=== PATIENT | male | born 1940 | race African-American/Black ===

== ENCOUNTER 2021-04-28 18:23 | Inpatient (IN) | payer OTHER ==
[~2021-04-28] VITALS: Ht 182.9 cm; Wt 86.4 kg
[2021-04-28] MEDS ORDERED: ACETAMINOPHEN 650MG SUPP PR STA (18:38)
[2021-04-28] MEDS ORDERED: CEFTRIAXONE 1 G PREMIX 50 ML IV ONE (18:45)
[2021-04-28] MEDS ORDERED: AZITHROMYCIN 500MG/250ML 250 ML IV ONE (18:45)
[2021-04-28] MEDS ORDERED: SODIUM CHLORIDE 0.9% 1,000 ML IV ONE (18:45)
[2021-04-28 19:13] LABS: BASOPHILS % 0.3 % (0.0-2.0); EOSINOPHILS % 0.4 % (0.0-5.0); HEMATOCRIT. 36.6 % (42.0-52.0); HEMOGLOBIN. 11.9 g/dL (14.0-18.0); LYMPHOCYTES % 8.7 % (20.0-50.0); MEAN CORPUSCULAR HEMOGLOBIN 30.7 pg (28.0-32.0); MEAN CORPUSCULAR VOLUME 94.4 fL (80.0-94.0); MONOCYTES % 5.2 % (2.0-8.0); NEUTROPHILS % 85.4 % (40.0-76.0); PLATELET 294 x1000/uL (130-400); RED BLOOD CELL COUNT 3.88 mill/uL (4.7-6.1); RED CELL DISTRIBUTION WIDTH 15.7 % (11.6-14.6)
[2021-04-28 19:20] LABS: CHLORIDE 109 mEq/L (98-107)
[2021-04-28 20:40] LABS: CLARITY URINE CLEAR (CLEAR); COLOR URINE YELLOW (YELLOW); KETONES URINE NEGATIVE (NEGATIVE); LEUKOCYTE ESTERASE URINE NEGATIVE (NEGATIVE); NITRITE URINE NEGATIVE (NEGATIVE); OCCULT BLOOD URINE 2+ (NEGATIVE); PH URINE 5.5 (4.5-8.0); PROTEIN URINE NEGATIVE (NEGATIVE); SPECIFIC GRAVITY URINE 1.014 (1.005-1.030)
[2021-04-29 03:40] VITALS: BP 143/82
[2021-04-29 04:00] VITALS: BP 134/82
[2021-04-29] MEDS ORDERED: PSYL575P22 MT (04:44)
[2021-04-29] MEDS ORDERED: SILD20TA PO (04:45)
[2021-04-29] MEDS ORDERED: FAMO40TA7 PO (04:46)
[2021-04-29] MEDS ORDERED: TERA1CAP53 MT (04:46)
[2021-04-29] MEDS ORDERED: FINA1TAB18 PO (04:47)
[2021-04-29] MEDS ORDERED: ATOR10TA69 PO (04:47)
[2021-04-29] MEDS ORDERED: XALAO EACHEYE (04:48)
[2021-04-29] MEDS ORDERED: TIMO5DRO32 EACHEYE (04:51)
[2021-04-29] MEDS ORDERED: BICA50TA7 PO (04:52)
[2021-04-29] MEDS ORDERED: BRIM5DRO6 EACHEYE (04:52)
[2021-04-29] MEDS ORDERED: ACETAMINOPHEN 325MG TABLET PO PRN (06:00)
[2021-04-29 08:00] VITALS: BP 142/83
[2021-04-29] MEDS: ASPIRIN 81MG TABLET PO SCH (09:36)
[2021-04-29] MEDS: BICALUTAMIDE 50 MG TABLET PO SCH (09:37)
[2021-04-29] MEDS: PSYLLIUM SEED PACKET PO SCH (09:37)
[2021-04-29] MEDS: FAMOTIDINE 20MG TABLET PO SCH ×2 (09:37→20:53)
[2021-04-29 12:00] VITALS: BP 146/81
[2021-04-29] MEDS ORDERED: IPRATROPIUM/ALBUTEROL 0.5-3(2.5)MG/3ML NEB HHN PRN (14:45)
[2021-04-29] MEDS ORDERED: ONDANSETRON HCL 4MG/2ML INJ IV PRN (14:45)
[2021-04-29 16:00] VITALS: BP 133/74
[2021-04-29] MEDS ORDERED: FUROSEMIDE 40MG/4ML VIAL IVP NR (16:00)
[2021-04-29] MEDS: AZITHROMYCIN 500 MG in DEXT 5% WATER 250 ML IV SCH (18:21)
[2021-04-29] MEDS: CEFTRIAXONE 1,000 MG in DEXTROSE 5% WATER 50 ML IV SCH (18:22)
[2021-04-29 20:00] VITALS: BP 103/58
[2021-04-29] MEDS: TERAZOSIN HCL 1MG CAPSULE PO SCH (20:55)
[2021-04-29] MEDS: ATORVASTATIN CALCIUM 20MG TABLET PO SCH (21:06)
[2021-04-30] VITALS: BP 135/69
[2021-04-30 04:00] VITALS: BP 116/73
[2021-04-30 07:36] LABS: BASOPHILS % 0.6 % (0.0-2.0); HEMATOCRIT. 33.9 % (42.0-52.0); HEMOGLOBIN. 11.1 g/dL (14.0-18.0); LYMPHOCYTES % 14.2 % (20.0-50.0); MEAN CORPUSCULAR HEMOGLOBIN 30.8 pg (28.0-32.0); MEAN CORPUSCULAR VOLUME 93.7 fL (80.0-94.0); MEAN PLATELET VOLUME 7.5 fl (7.4-10.4); MONOCYTES % 10.7 % (2.0-8.0); NEUTROPHILS % 71.5 % (40.0-76.0); PLATELET 220 x1000/uL (130-400); RED BLOOD CELL COUNT 3.62 mill/uL (4.7-6.1); RED CELL DISTRIBUTION WIDTH 15.7 % (11.6-14.6)
[2021-04-30 07:54] LABS: CHLORIDE 109 mEq/L (98-107)
[2021-04-30 08:00] VITALS: BP 145/88
[2021-04-30] MEDS: PSYLLIUM SEED PACKET PO SCH (08:38)
[2021-04-30] MEDS: FAMOTIDINE 20MG TABLET PO SCH ×2 (08:38→21:38)
[2021-04-30] MEDS: ASPIRIN 81MG TABLET PO SCH (08:38)
[2021-04-30 12:00] VITALS: BP 122/65
[2021-04-30 16:00] VITALS: BP 120/67
[2021-04-30] MEDS: CEFTRIAXONE 1,000 MG in DEXTROSE 5% WATER 50 ML IV SCH (17:10)
[2021-04-30] MEDS: TIMOLOL MALEATE 0.5% OPHTH DROPS 5ML EACHEYE SCH (17:10)
[2021-04-30] MEDS: AZITHROMYCIN 500 MG in DEXT 5% WATER 250 ML IV SCH (17:10)
[2021-04-30] MEDS: ATORVASTATIN CALCIUM 20MG TABLET PO SCH (21:38)
[2021-04-30] MEDS: TERAZOSIN HCL 1MG CAPSULE PO SCH (21:38)
[2021-04-30] MEDS: BRIMONIDINE 0.2% OPHTH DROPS 5ML EACHEYE SCH (21:39)
[2021-04-30] MEDS: LATANOPROST 0.005% OPHTH DROPS 2.5ML EACHEYE SCH (21:39)
[2021-05-01] VITALS: BP 112/71
[2021-05-01 04:00] VITALS: BP 131/77
[2021-05-01] MEDS: BRIMONIDINE 0.2% OPHTH DROPS 5ML EACHEYE SCH ×3 (06:08→21:24)
[2021-05-01 08:00] VITALS: BP 126/68
[2021-05-01] MEDS: BICALUTAMIDE 50 MG TABLET PO SCH (09:02)
[2021-05-01] MEDS: TIMOLOL MALEATE 0.5% OPHTH DROPS 5ML EACHEYE SCH (09:02)
[2021-05-01] MEDS: FAMOTIDINE 20MG TABLET PO SCH ×2 (09:02→21:17)
[2021-05-01] MEDS: ASPIRIN 81MG TABLET PO SCH (09:02)
[2021-05-01] MEDS: PSYLLIUM SEED PACKET PO SCH (09:02)
[2021-05-01 12:00] VITALS: BP 141/83
[2021-05-01 16:00] VITALS: BP 106/52
[2021-05-01] MEDS: CEFTRIAXONE 1,000 MG in DEXTROSE 5% WATER 50 ML IV SCH (18:37)
[2021-05-01] MEDS: AZITHROMYCIN 500 MG in DEXT 5% WATER 250 ML IV SCH (18:37)
[2021-05-01 20:00] VITALS: BP 122/73
[2021-05-01] MEDS: ATORVASTATIN CALCIUM 20MG TABLET PO SCH (21:17)
[2021-05-01] MEDS: TERAZOSIN HCL 1MG CAPSULE PO SCH (21:24)
[2021-05-02] VITALS: BP 126/80
[2021-05-02 04:00] VITALS: BP 138/72
[2021-05-02] MEDS: BRIMONIDINE 0.2% OPHTH DROPS 5ML EACHEYE SCH ×3 (06:19→21:30)
[2021-05-02 08:00] VITALS: BP 122/68
[2021-05-02] MEDS: PSYLLIUM SEED PACKET PO SCH (09:00)
[2021-05-02 10:08] LABS: BASOPHILS % 0.5 % (0.0-2.0); EOSINOPHILS % 2.5 % (0.0-5.0); HEMATOCRIT. 31.6 % (42.0-52.0); HEMOGLOBIN. 10.3 g/dL (14.0-18.0); LYMPHOCYTES % 20.6 % (20.0-50.0); MEAN CORPUSCULAR HEMOGLOBIN 30.6 pg (28.0-32.0); MEAN CORPUSCULAR VOLUME 93.8 fL (80.0-94.0); MEAN PLATELET VOLUME 8.2 fl (7.4-10.4); MONOCYTES % 6.4 % (2.0-8.0); PLATELET 237 x1000/uL (130-400); RED BLOOD CELL COUNT 3.37 mill/uL (4.7-6.1); RED CELL DISTRIBUTION WIDTH 15.1 % (11.6-14.6)
[2021-05-02 10:30] LABS: CHLORIDE 108 mEq/L (98-107)
[2021-05-02] MEDS: FAMOTIDINE 20MG TABLET PO SCH ×2 (10:49→21:30)
[2021-05-02] MEDS: ASPIRIN 81MG TABLET PO SCH (10:49)
[2021-05-02] MEDS: FUROSEMIDE 40MG/4ML VIAL IVP SCH (10:50)
[2021-05-02] MEDS: TIMOLOL MALEATE 0.5% OPHTH DROPS 5ML EACHEYE SCH (10:50)
[2021-05-02 12:00] VITALS: BP 127/67
[2021-05-02] MEDS ORDERED: LIDOCAINE HCL 1% 10 MG/ML 10ML VIAL ONE (14:33)
[2021-05-02 16:00] VITALS: BP 124/71
[2021-05-02] MEDS: CEFTRIAXONE 1,000 MG in DEXTROSE 5% WATER 50 ML IV SCH (17:28)
[2021-05-02] MEDS: AZITHROMYCIN 500 MG in DEXT 5% WATER 250 ML IV SCH (18:51)
[2021-05-02 20:00] VITALS: BP 136/68
[2021-05-02] MEDS: TERAZOSIN HCL 1MG CAPSULE PO SCH (21:29)
[2021-05-02] MEDS: LATANOPROST 0.005% OPHTH DROPS 2.5ML EACHEYE SCH (21:29)
[2021-05-02] MEDS: ATORVASTATIN CALCIUM 20MG TABLET PO SCH (21:30)
[2021-05-03] VITALS: BP 130/69
[2021-05-03 04:00] VITALS: BP 142/64
[2021-05-03] MEDS: BRIMONIDINE 0.2% OPHTH DROPS 5ML EACHEYE SCH ×3 (05:10→22:58)
[2021-05-03 08:00] VITALS: BP 150/63
[2021-05-03] MEDS: FUROSEMIDE 40MG/4ML VIAL IVP SCH (09:32)
[2021-05-03] MEDS: ASPIRIN 81MG TABLET PO SCH (09:32)
[2021-05-03] MEDS: FAMOTIDINE 20MG TABLET PO SCH ×2 (09:32→22:58)
[2021-05-03] MEDS: PSYLLIUM SEED PACKET PO SCH (09:32)
[2021-05-03] MEDS: BICALUTAMIDE 50 MG TABLET PO SCH (09:33)
[2021-05-03] MEDS: TIMOLOL MALEATE 0.5% OPHTH DROPS 5ML EACHEYE SCH (09:33)
[2021-05-03 12:00] VITALS: BP 140/68
[2021-05-03 16:00] VITALS: BP 109/68
[2021-05-03 16:31] LABS: BASOPHILS % 0.4 % (0.0-2.0); EOSINOPHILS % 2.7 % (0.0-5.0); HEMOGLOBIN. 8.1 g/dL (14.0-18.0); MEAN CORPUSCULAR HEMOGLOBIN 30.2 pg (28.0-32.0); MEAN CORPUSCULAR VOLUME 93.3 fL (80.0-94.0); MEAN PLATELET VOLUME 8.4 fl (7.4-10.4); MONOCYTES % 8.8 % (2.0-8.0); NEUTROPHILS % 73.1 % (40.0-76.0); PLATELET 181 x1000/uL (130-400); RED BLOOD CELL COUNT 2.68 mill/uL (4.7-6.1)
[2021-05-03] MEDS: CEFTRIAXONE 1,000 MG in DEXTROSE 5% WATER 50 ML IV SCH (17:26)
[2021-05-03 20:00] VITALS: BP 120/66
[2021-05-03] MEDS: ATORVASTATIN CALCIUM 20MG TABLET PO SCH (22:58)
[2021-05-03] MEDS: TERAZOSIN HCL 1MG CAPSULE PO SCH (22:58)
[2021-05-04] VITALS (7 sets, daily range): BP systolic 112–165; BP diastolic 49–68
[2021-05-04] MEDS: BRIMONIDINE 0.2% OPHTH DROPS 5ML EACHEYE SCH ×3 (05:43→21:37)
[2021-05-04] MEDS: TIMOLOL MALEATE 0.5% OPHTH DROPS 5ML EACHEYE SCH (09:39)
[2021-05-04] MEDS: FAMOTIDINE 20MG TABLET PO SCH ×2 (09:39→20:50)
[2021-05-04] MEDS: ASPIRIN 81MG TABLET PO SCH (09:39)
[2021-05-04] MEDS: PSYLLIUM SEED PACKET PO SCH (09:39)
[2021-05-04] MEDS: FUROSEMIDE 40MG/4ML VIAL IVP SCH (09:54)
[2021-05-04] MEDS: CEFTRIAXONE 1,000 MG in DEXTROSE 5% WATER 50 ML IV SCH (17:18)
[2021-05-04] MEDS: ATORVASTATIN CALCIUM 20MG TABLET PO SCH (20:56)
[2021-05-04] MEDS: TERAZOSIN HCL 1MG CAPSULE PO SCH (20:56)
[2021-05-04] MEDS: LATANOPROST 0.005% OPHTH DROPS 2.5ML EACHEYE SCH (21:03)
[2021-05-05] VITALS: BP 133/67
[2021-05-05 04:00] VITALS: BP 144/72
[2021-05-05] MEDS: BRIMONIDINE 0.2% OPHTH DROPS 5ML EACHEYE SCH ×3 (06:10→21:24)
[2021-05-05 06:44] LABS: CHLORIDE 106 mEq/L (98-107)
[2021-05-05 06:48] LABS: BASOPHILS % 0.9 % (0.0-2.0); EOSINOPHILS % 2.3 % (0.0-5.0); HEMATOCRIT. 24.2 % (42.0-52.0); HEMOGLOBIN. 7.9 g/dL (14.0-18.0); MEAN CORPUSCULAR HEMOGLOBIN 30.7 pg (28.0-32.0); MEAN CORPUSCULAR VOLUME 93.8 fL (80.0-94.0); MEAN PLATELET VOLUME 8.3 fl (7.4-10.4); MONOCYTES % 9.8 % (2.0-8.0); PLATELET 187 x1000/uL (130-400); RED BLOOD CELL COUNT 2.58 mill/uL (4.7-6.1); RED CELL DISTRIBUTION WIDTH 14.9 % (11.6-14.6)
[2021-05-05 08:00] VITALS: BP 132/63
[2021-05-05] MEDS: ASPIRIN 81MG TABLET PO SCH (09:07)
[2021-05-05] MEDS: BICALUTAMIDE 50 MG TABLET PO SCH (09:07)
[2021-05-05] MEDS: FUROSEMIDE 40MG/4ML VIAL IVP SCH (09:07)
[2021-05-05] MEDS: PSYLLIUM SEED PACKET PO SCH (09:07)
[2021-05-05] MEDS: FAMOTIDINE 20MG TABLET PO SCH ×2 (09:07→21:24)
[2021-05-05] MEDS: TIMOLOL MALEATE 0.5% OPHTH DROPS 5ML EACHEYE SCH (09:08)
[2021-05-05 12:00] VITALS: BP 137/69
[2021-05-05 16:00] VITALS: BP 148/64
[2021-05-05] MEDS: CEFTRIAXONE 1,000 MG in DEXTROSE 5% WATER 50 ML IV SCH (16:28)
[2021-05-05 20:00] VITALS: BP 152/88
[2021-05-05] MEDS: TERAZOSIN HCL 1MG CAPSULE PO SCH (21:24)
[2021-05-05] MEDS: ATORVASTATIN CALCIUM 20MG TABLET PO SCH (21:24)
[2021-05-06] VITALS: BP 113/63
[2021-05-06 04:00] VITALS: BP 131/73
[2021-05-06] MEDS: BRIMONIDINE 0.2% OPHTH DROPS 5ML EACHEYE SCH (05:08)
[2021-05-06 08:00] VITALS: BP 117/45
[2021-05-06] MEDS: FAMOTIDINE 20MG TABLET PO SCH (09:09)
[2021-05-06] MEDS: ASPIRIN 81MG TABLET PO SCH (09:09)
[2021-05-06] MEDS: TIMOLOL MALEATE 0.5% OPHTH DROPS 5ML EACHEYE SCH (09:09)
[2021-05-06] MEDS: FUROSEMIDE 40MG/4ML VIAL IVP SCH (09:09)
[2021-05-06] MEDS: PSYLLIUM SEED PACKET PO SCH (09:10)
[2021-05-06 09:30] LABS: BASOPHILS % 0.7 % (0.0-2.0); EOSINOPHILS % 2.3 % (0.0-5.0); HEMATOCRIT. 28.1 % (42.0-52.0); HEMOGLOBIN. 9.1 g/dL (14.0-18.0); LYMPHOCYTES % 14.7 % (20.0-50.0); MEAN CORPUSCULAR HEMOGLOBIN 30.4 pg (28.0-32.0); MONOCYTES % 6.8 % (2.0-8.0); NEUTROPHILS % 75.5 % (40.0-76.0); PLATELET 241 x1000/uL (130-400); RED BLOOD CELL COUNT 2.99 mill/uL (4.7-6.1); RED CELL DISTRIBUTION WIDTH 14.9 % (11.6-14.6)
[2021-05-06 09:43] LABS: CHLORIDE 103 mEq/L (98-107)
[2021-05-06 09:55] LABS: TOTAL IRON BINDING CAPACITY 112 ug/dL (250-450)
[2021-05-06 09:56] LABS: FOLIC ACID (FOLATE) SERUM 6.4 ng/mL (>5.38)
[2021-05-06 11:29] VITALS: BP 117/45
[2021-05-06 12:00] VITALS: BP 132/84
== END 2021-05-06 14:42 | DRG 871 ==
LOC: ER 18:23 → 7EST 04-29 01:44 → ENRESERV 04-29 02:11
PROVIDERS: ADMIT Internal Medicine; ATTEND Internal Medicine
PROC: 02HV33Z Insertion of Infusion Device into Superior Vena Cava, Percutaneous Approach (ICD-10-PCS; principal; 2021-05-02)
PROC: B548ZZA Ultrasonography of Superior Vena Cava, Guidance (ICD-10-PCS; 2021-05-02)
PROC: B5181ZA Fluoroscopy of Superior Vena Cava using Low Osmolar Contrast, Guidance (ICD-10-PCS; 2021-05-02)
DX: A41.59 Other Gram-negative sepsis (principal); E43 Unspecified severe protein-calorie malnutrition; J18.9 Pneumonia, unspecified organism; I50.31 Acute diastolic (congestive) heart failure; I31.3 Pericardial effusion (noninflammatory); D64.9 Anemia, unspecified; E87.8 Other disorders of electrolyte and fluid balance, not elsewhere classified; B96.1 Klebsiella pneumoniae [K. pneumoniae] as the cause of diseases classified elsewhere; I11.0 Hypertensive heart disease with heart failure; K75.3 Granulomatous hepatitis, not elsewhere classified; R65.20 Severe sepsis without septic shock; Z20.822 Contact with and (suspected) exposure to COVID-19; F02.80 Dementia in other diseases classified elsewhere, unspecified severity, without behavioral disturbance, psychotic disturbance, mood disturbance, and anxiety; G30.9 Alzheimer's disease, unspecified; Z85.46 Personal history of malignant neoplasm of prostate; Z87.440 Personal history of urinary (tract) infections; Z79.899 Other long term (current) drug therapy; Z68.25 Body mass index [BMI] 25.0-25.9, adult
CPT/HCPCS: 36415; 36573; 71045; 76700; 80048; 80053; 81003; 82140; 82607; 82728; 82746; 83540; 83550; 83605; 83880; 84145; 84484; 85018; 85025; 85044; 87077; 87186; 87426; 93005; 93306; 97110; 97116; 97162; 99291; C1725; C9803; J0456; J0696; J1940; J3490; J7030; J7040; J7060; U0003; U0005

== ENCOUNTER 2021-06-17 13:32 | Inpatient (IN) | payer OTHER, MEDICARE, BC ==
[~2021-06-17] VITALS: Ht 182.9 cm; Wt 70.8 kg
[~2021-06-17 13:32] MED LIST: ATOR10TA69 PO; BICA50TA7 PO; BRIM5DRO6 EACHEYE; FAMO40TA7 PO; FINA1TAB18 PO; PSYL575P22 MT; SILD20TA PO; TERA1CAP53 MT; TIMO5DRO32 EACHEYE; XALAO EACHEYE
[2021-06-17 15:09] LABS: CHLORIDE 102 mEq/L (98-107); HEMATOCRIT. 39.3 % (42.0-52.0); MEAN CORPUSCULAR HEMOGLOBIN 30.2 pg (28.0-32.0); MEAN CORPUSCULAR VOLUME 91.6 fL (80.0-94.0); MEAN PLATELET VOLUME 7.8 fl (7.4-10.4); PLATELET 313 x1000/uL (130-400); RED BLOOD CELL COUNT 4.29 mill/uL (4.7-6.1); RED CELL DISTRIBUTION WIDTH 14.7 % (11.6-14.6)
[2021-06-17 15:13] LABS: ETHANOL BLOOD < 10 mg/dL
[2021-06-17 17:21] LABS: CLARITY URINE CLEAR (CLEAR); COLOR URINE DARK YELLOW (YELLOW); KETONES URINE 1+ (NEGATIVE); LEUKOCYTE ESTERASE URINE NEGATIVE (NEGATIVE); NITRITE URINE NEGATIVE (NEGATIVE); OCCULT BLOOD URINE 1+ (NEGATIVE); PROTEIN URINE TRACE (NEGATIVE); SPECIFIC GRAVITY URINE 1.022 (1.005-1.030)
[2021-06-17] MEDS ORDERED: ACETAMINOPHEN 325MG TABLET PO NR (17:24)
[2021-06-17] MEDS ORDERED: PIPERACILLIN/TAZ 3.375G PREMIX 50 ML IV NR (17:30)
[2021-06-17] MEDS ORDERED: SODIUM CHLORIDE 0.9% 1000ML BAG (SEPSIS BOLUS) IV ONE (17:30)
[2021-06-17] MEDS ORDERED: SODIUM CHLORIDE 0.9% 2,700 ML IV SCH (17:30)
[2021-06-17] MEDS ORDERED: VANCOMYCIN 1G PREMIX 200 ML IV NR (17:30)
[2021-06-17] MEDS ORDERED: SODIUM CHLORIDE 0.9% 2,500 ML IV SCH (17:30)
[2021-06-17 17:38] LABS: *AMPHETAMINES SCREEN URINE NEGATIVE (NEGATIVE); *BARBITURATES SCREEN URINE NEGATIVE (NEGATIVE); *BENZODIAZEPINES SCREEN URINE NEGATIVE (NEGATIVE); *COCAINE SCREEN URINE NEGATIVE (NEGATIVE)
[2021-06-17 17:39] LABS: CANNABINOID URINE SCREEN PRESUMTIVE POSITIVE (NEGATIVE); METHADONE URINE SCREEN NEGATIVE (NEGATIVE); OPIATES URINE SCREEN NEGATIVE (NEGATIVE); PHENCYCLIDINE URINE SCREEN NEGATIVE (NEGATIVE)
[2021-06-17 18:00] LABS: PLATELET ESTIMATE NORMAL
[2021-06-17] MEDS ORDERED: DILTIAZEM HCL 5MG/ML 5ML VIAL IV ONE ×2 (19:30→19:45)
[2021-06-17 20:11] LABS: BG BASE EXCESS -5.5 mmol/L (-2.0-2.0); BG CARBOXYHEMOGLOBIN 0.3 % (0.5-1.5); BG DEOXYHEMOGLOBIN 5.2 % (0.0-5.0); BG FRACTION INSPIRED OXYGEN 21; BG HCO3 ACT 17.8 mmol/L (22.0-26.0); BG METHEMOGLOBIN 0.2 % (0.0-1.5); BG OXYGEN SATURATION 94.8 % (92.0-98.5); BG OXYHEMOGLOBIN 94.3 % (94.0-97.0); BG PCO2 27.8 mmHg (35.0-45.0); BG PH 7.424 (7.350-7.450); BG PO2 75.6 mmHg (75.0-100.0); BG SAMPLE SITE RIGHT RADIAL; BG TOTAL HEMOGLOBIN 10.8 g/dL (12.0-18.0); BG VENT MODE ROOM AIR
[2021-06-18] MEDS ORDERED: ASPIRIN 81MG TABLET PO SCH (13:45)
[2021-06-18] MEDS ORDERED: CEFTRIAXONE 1 G PREMIX 50 ML IV SCH (14:00)
[2021-06-18] MEDS: ENOXAPARIN 40MG/0.4ML SYR SUBCUT SCH (14:31)
[2021-06-18] MEDS: ATORVASTATIN CALCIUM 40MG TABLET PO SCH (22:15)
[2021-06-19] MEDS: ASPIRIN 81MG TABLET PO SCH (09:19)
[2021-06-19 09:55] VITALS: BP 137/92
[2021-06-19 12:00] VITALS: BP 136/74
[2021-06-19] MEDS: ENOXAPARIN 40MG/0.4ML SYR SUBCUT SCH ×2 (14:00→17:52)
[2021-06-19 16:00] VITALS: BP 142/82
[2021-06-19 20:00] VITALS: BP 117/78
[2021-06-19] MEDS: CEFTRIAXONE 1,000 MG in DEXTROSE 5% WATER 50 ML IV SCH (20:59)
[2021-06-19] MEDS: ATORVASTATIN CALCIUM 40MG TABLET PO SCH (21:54)
[2021-06-19] MEDS: VANCOMYCIN 1250MG in DEXTROSE 5% WATER 250ML IV SCH (22:20)
[2021-06-20 00:37] VITALS: BP 120/66
[2021-06-20 04:00] VITALS: BP 105/80
[2021-06-20 08:00] VITALS: BP 130/61
[2021-06-20] MEDS: ASPIRIN 81MG TABLET PO SCH (09:53)
[2021-06-20 12:00] VITALS: BP 118/74
[2021-06-20] MEDS: VANCOMYCIN 1250MG in DEXTROSE 5% WATER 250ML IV SCH (14:12)
[2021-06-20] MEDS: ENOXAPARIN 40MG/0.4ML SYR SUBCUT SCH (14:12)
[2021-06-20 16:00] VITALS: BP 118/74
[2021-06-20 20:00] VITALS: BP 115/65
[2021-06-20 21:17] LABS: CHLORIDE 105 mEq/L (98-107)
[2021-06-20] MEDS: CEFTRIAXONE 1,000 MG in DEXTROSE 5% WATER 50 ML IV SCH (21:20)
[2021-06-20] MEDS: ATORVASTATIN CALCIUM 40MG TABLET PO SCH (21:44)
[2021-06-21] VITALS: BP 118/66
[2021-06-21 04:00] VITALS: BP 142/64
[2021-06-21 07:59] VITALS: BP 113/62
[2021-06-21] MEDS: ASPIRIN 81MG TABLET PO SCH (08:25)
[2021-06-21 09:45] LABS: CHLORIDE 105 mEq/L (98-107)
[2021-06-21 12:03] VITALS: BP 115/68
[2021-06-21] MEDS: ENOXAPARIN 40MG/0.4ML SYR SUBCUT SCH (13:12)
[2021-06-21 15:48] VITALS: BP 131/71
[2021-06-21] MEDS: CEFTRIAXONE 1,000 MG in DEXTROSE 5% WATER 50 ML IV SCH (18:02)
[2021-06-21] MEDS: ATORVASTATIN CALCIUM 40MG TABLET PO SCH (22:22)
[2021-06-22 04:00] VITALS: BP 124/68
[2021-06-22 07:53] VITALS: BP 132/69
[2021-06-22] MEDS: ASPIRIN 81MG TABLET PO SCH (08:36)
[2021-06-22 12:00] VITALS: BP 156/73
[2021-06-22 13:02] VITALS: BP 156/73
[2021-06-22] MEDS: ENOXAPARIN 40MG/0.4ML SYR SUBCUT SCH (13:21)
[2021-06-22 16:00] VITALS: BP 144/75
[2021-06-22 20:00] VITALS: BP 154/74
[2021-06-22] MEDS: ATORVASTATIN CALCIUM 40MG TABLET PO SCH (20:20)
[2021-06-23] VITALS: BP 150/63
[2021-06-23 04:00] VITALS: BP 129/76
[2021-06-23] MEDS: ASPIRIN 81MG TABLET PO SCH (09:15)
[2021-06-23 12:00] VITALS: BP 167/79
[2021-06-23] MEDS: ENOXAPARIN 40MG/0.4ML SYR SUBCUT SCH (13:50)
[2021-06-23 16:00] VITALS: BP 174/87
[2021-06-23 20:00] VITALS: BP 146/84
[2021-06-23] MEDS: ATORVASTATIN CALCIUM 40MG TABLET PO SCH (21:35)
[2021-06-24] VITALS: BP 142/78
[2021-06-24 04:00] VITALS: BP 138/72
[2021-06-24 08:00] VITALS: BP 141/76
[2021-06-24] MEDS: ASPIRIN 81MG TABLET PO SCH (09:36)
[2021-06-24 12:00] VITALS: BP 138/66
[2021-06-24] MEDS: ENOXAPARIN 40MG/0.4ML SYR SUBCUT SCH (14:16)
[2021-06-24 16:00] VITALS: BP 112/82
[2021-06-24 20:00] VITALS: BP 156/85
[2021-06-24] MEDS: ATORVASTATIN CALCIUM 40MG TABLET PO SCH (20:21)
[2021-06-25 00:05] VITALS: BP 141/77
[2021-06-25 04:00] VITALS: BP 95/62
[2021-06-25] MEDS: ACETAMINOPHEN 325MG TABLET PO PRN (04:10)
[2021-06-25 08:00] VITALS: BP 154/68
[2021-06-25] MEDS: ASPIRIN 81MG TABLET PO SCH (08:43)
[2021-06-25 12:28] VITALS: BP 142/67
[2021-06-25] MEDS: ENOXAPARIN 40MG/0.4ML SYR SUBCUT SCH (13:23)
[2021-06-25 16:00] VITALS: BP 138/64
[2021-06-25 20:01] VITALS: BP 146/75
[2021-06-25] MEDS: ATORVASTATIN CALCIUM 40MG TABLET PO SCH (21:00)
[2021-06-26 00:05] VITALS: BP 125/72
[2021-06-26 04:00] VITALS: BP 120/71
[2021-06-26 08:00] VITALS: BP 142/66
[2021-06-26] MEDS: ASPIRIN 81MG TABLET PO SCH (09:54)
[2021-06-26 12:00] VITALS: BP 132/66
[2021-06-26] MEDS: ENOXAPARIN 40MG/0.4ML SYR SUBCUT SCH (14:19)
[2021-06-26 16:00] VITALS: BP 144/64
[2021-06-26] MEDS: ACETAMINOPHEN 325MG TABLET PO PRN (17:37)
[2021-06-26 20:00] VITALS: BP 147/66
[2021-06-26] MEDS: ATORVASTATIN CALCIUM 40MG TABLET PO SCH (20:35)
[2021-06-27] VITALS (7 sets, daily range): BP systolic 110–133; BP diastolic 58–88
[2021-06-27 06:13] LABS: BASOPHILS % 0.3 % (0.0-2.0); EOSINOPHILS % 2.6 % (0.0-5.0); HEMATOCRIT. 27.8 % (42.0-52.0); HEMOGLOBIN. 9.6 g/dL (14.0-18.0); LYMPHOCYTES % 21.1 % (20.0-50.0); MEAN CORPUSCULAR HEMOGLOBIN 30.3 pg (28.0-32.0); MEAN CORPUSCULAR VOLUME 87.8 fL (80.0-94.0); MONOCYTES % 9.6 % (2.0-8.0); NEUTROPHILS % 66.4 % (40.0-76.0); PLATELET 245 x1000/uL (130-400); RED BLOOD CELL COUNT 3.17 mill/uL (4.7-6.1); RED CELL DISTRIBUTION WIDTH 14.5 % (11.6-14.6)
[2021-06-27 06:37] LABS: CHLORIDE 103 mEq/L (98-107)
[2021-06-27] MEDS: ASPIRIN 81MG TABLET PO SCH (09:23)
[2021-06-27] MEDS: ENOXAPARIN 40MG/0.4ML SYR SUBCUT SCH (14:55)
[2021-06-27] MEDS ORDERED: POTASSIUM CHLORIDE 20MEQ TABLET SR PO NR (21:15)
[2021-06-27] MEDS: ATORVASTATIN CALCIUM 40MG TABLET PO SCH (21:20)
[2021-06-28] VITALS: BP 114/57
[2021-06-28 04:00] VITALS: BP 120/65
[2021-06-28 08:00] VITALS: BP 130/74
[2021-06-28] MEDS: ASPIRIN 81MG TABLET PO SCH (08:37)
[2021-06-28 12:00] VITALS: BP 128/69
[2021-06-28] MEDS: ENOXAPARIN 40MG/0.4ML SYR SUBCUT SCH (14:01)
[2021-06-28 16:00] VITALS: BP 119/61
[2021-06-28 20:00] VITALS: BP 129/63
[2021-06-28] MEDS: ATORVASTATIN CALCIUM 40MG TABLET PO SCH (21:06)
[2021-06-29] VITALS: BP 118/60
[2021-06-29 04:00] VITALS: BP 106/61
[2021-06-29] MEDS: ASPIRIN 81MG TABLET PO SCH (09:15)
[2021-06-29 12:00] VITALS: BP 130/70
[2021-06-29] MEDS: ENOXAPARIN 40MG/0.4ML SYR SUBCUT SCH (13:56)
[2021-06-29 16:00] VITALS: BP 152/74
[2021-06-29 20:00] VITALS: BP 138/73
[2021-06-29] MEDS: ATORVASTATIN CALCIUM 40MG TABLET PO SCH (21:32)
[2021-06-30] VITALS: BP 139/74
[2021-06-30 04:00] VITALS: BP 126/68
[2021-06-30 08:00] VITALS: BP 128/74
[2021-06-30] MEDS: ASPIRIN 81MG TABLET PO SCH (09:11)
[2021-06-30 12:00] VITALS: BP 157/79
[2021-06-30] MEDS: ENOXAPARIN 40MG/0.4ML SYR SUBCUT SCH (13:01)
[2021-06-30 16:00] VITALS: BP 139/69
[2021-06-30 20:00] VITALS: BP 136/74
[2021-06-30] MEDS: ATORVASTATIN CALCIUM 40MG TABLET PO SCH (21:56)
[2021-07-01] VITALS: BP 118/53
[2021-07-01] MEDS: ACETAMINOPHEN 325MG TABLET PO PRN (02:13)
[2021-07-01 04:00] VITALS: BP 122/70
[2021-07-01 08:00] VITALS: BP 113/56
[2021-07-01] MEDS: ASPIRIN 81MG TABLET PO SCH (08:35)
[2021-07-01 12:00] VITALS: BP 126/68
[2021-07-01] MEDS: ENOXAPARIN 40MG/0.4ML SYR SUBCUT SCH (14:00)
[2021-07-01 16:00] VITALS: BP 138/70
[2021-07-01 20:00] VITALS: BP 124/64
[2021-07-01] MEDS: ATORVASTATIN CALCIUM 40MG TABLET PO SCH (21:15)
[2021-07-02] VITALS: BP 107/64
[2021-07-02 04:00] VITALS: BP 98/51
[2021-07-02 08:00] VITALS: BP 116/65
[2021-07-02] MEDS: ASPIRIN 81MG TABLET PO SCH (08:38)
[2021-07-02 12:00] VITALS: BP 146/66
[2021-07-02] MEDS: ENOXAPARIN 40MG/0.4ML SYR SUBCUT SCH (12:27)
[2021-07-02 16:00] VITALS: BP 120/63
[2021-07-02 20:00] VITALS: BP 124/61
[2021-07-02] MEDS: ATORVASTATIN CALCIUM 40MG TABLET PO SCH (21:24)
[2021-07-03 08:00] VITALS: BP 108/64
[2021-07-03] MEDS: ASPIRIN 81MG TABLET PO SCH (09:01)
[2021-07-03 12:00] VITALS: BP 124/67
[2021-07-03] MEDS: ENOXAPARIN 40MG/0.4ML SYR SUBCUT SCH (14:26)
[2021-07-03 16:00] VITALS: BP 126/75
[2021-07-03 20:28] VITALS: BP 143/74
[2021-07-03] MEDS: ATORVASTATIN CALCIUM 40MG TABLET PO SCH (21:15)
[2021-07-04 00:39] VITALS: BP 140/67
[2021-07-04 04:00] VITALS: BP 125/72
[2021-07-04] MEDS: ASPIRIN 81MG TABLET PO SCH (09:20)
[2021-07-04 12:00] VITALS: BP 124/58
[2021-07-04] MEDS: ENOXAPARIN 40MG/0.4ML SYR SUBCUT SCH (13:08)
[2021-07-04 16:00] VITALS: BP 130/69
[2021-07-04] MEDS: ATORVASTATIN CALCIUM 40MG TABLET PO SCH (21:19)
[2021-07-04 21:46] LABS: BASOPHILS % 0.8 % (0.0-2.0); EOSINOPHILS % 1.7 % (0.0-5.0); HEMATOCRIT. 28.2 % (42.0-52.0); HEMOGLOBIN. 9.3 g/dL (14.0-18.0); LYMPHOCYTES % 19.1 % (20.0-50.0); MEAN CORPUSCULAR HEMOGLOBIN 28.7 pg (28.0-32.0); MEAN CORPUSCULAR VOLUME 86.8 fL (80.0-94.0); MEAN PLATELET VOLUME 7.7 fl (7.4-10.4); MONOCYTES % 14.9 % (2.0-8.0); NEUTROPHILS % 63.5 % (40.0-76.0); PLATELET 582 x1000/uL (130-400); RED BLOOD CELL COUNT 3.25 mill/uL (4.7-6.1); RED CELL DISTRIBUTION WIDTH 14.4 % (11.6-14.6)
[2021-07-04 22:01] LABS: CHLORIDE 105 mEq/L (98-107)
[2021-07-05] VITALS: BP 96/51
[2021-07-05 04:00] VITALS: BP 123/54
[2021-07-05 07:05] LABS: HEMATOCRIT. 27.3 % (42.0-52.0); HEMOGLOBIN. 9.1 g/dL (14.0-18.0); MEAN CORPUSCULAR HEMOGLOBIN 29.1 pg (28.0-32.0); MEAN CORPUSCULAR VOLUME 87.1 fL (80.0-94.0); MEAN PLATELET VOLUME 7.3 fl (7.4-10.4); PLATELET 517 x1000/uL (130-400); RED BLOOD CELL COUNT 3.13 mill/uL (4.7-6.1); RED CELL DISTRIBUTION WIDTH 14.7 % (11.6-14.6)
[2021-07-05 07:09] LABS: CHLORIDE 105 mEq/L (98-107)
[2021-07-05] MEDS: ASPIRIN 81MG TABLET PO SCH (08:53)
[2021-07-05 12:00] VITALS: BP 101/61
[2021-07-05] MEDS: ENOXAPARIN 40MG/0.4ML SYR SUBCUT SCH (15:43)
[2021-07-05 16:00] VITALS: BP 138/72
[2021-07-05 20:45] VITALS: BP 139/72
[2021-07-05 21:15] LABS: PLATELET ESTIMATE INCREASED
[2021-07-05] MEDS: ATORVASTATIN CALCIUM 40MG TABLET PO SCH (22:19)
[2021-07-06 00:30] VITALS: BP 135/54
[2021-07-06 04:00] VITALS: BP 112/68
[2021-07-06 08:00] VITALS: BP 119/69
[2021-07-06] MEDS: ASPIRIN 81MG TABLET PO SCH (08:25)
[2021-07-06 12:00] VITALS: BP 130/67
[2021-07-06] MEDS: ENOXAPARIN 40MG/0.4ML SYR SUBCUT SCH (13:00)
[2021-07-06 16:00] VITALS: BP 140/67
[2021-07-06 20:00] VITALS: BP 148/71
[2021-07-06] MEDS: ATORVASTATIN CALCIUM 40MG TABLET PO SCH (20:40)
[2021-07-07] VITALS: BP 114/51
[2021-07-07 04:00] VITALS: BP 131/68
[2021-07-07 08:00] VITALS: BP 115/64
[2021-07-07] MEDS: ASPIRIN 81MG TABLET PO SCH (08:09)
[2021-07-07 12:00] VITALS: BP 109/63
[2021-07-07] MEDS: ENOXAPARIN 40MG/0.4ML SYR SUBCUT SCH (13:45)
[2021-07-07 16:00] VITALS: BP 130/72
[2021-07-07 20:00] VITALS: BP 124/83
[2021-07-07] MEDS: ATORVASTATIN CALCIUM 40MG TABLET PO SCH (21:51)
[2021-07-08] VITALS: BP 136/71
[2021-07-08 04:00] VITALS: BP 107/65
[2021-07-08 08:00] VITALS: BP 118/59
[2021-07-08] MEDS: ASPIRIN 81MG TABLET PO SCH (08:33)
[2021-07-08 12:00] VITALS: BP 99/56
[2021-07-08] MEDS: ENOXAPARIN 40MG/0.4ML SYR SUBCUT SCH (13:28)
[2021-07-08 16:00] VITALS: BP 140/74
[2021-07-08 20:00] VITALS: BP 123/60
[2021-07-08] MEDS: ATORVASTATIN CALCIUM 40MG TABLET PO SCH (21:58)
[2021-07-09] VITALS: BP 105/79
[2021-07-09 04:00] VITALS: BP 121/65
[2021-07-09 08:00] VITALS: BP 126/68
[2021-07-09] MEDS: ASPIRIN 81MG TABLET PO SCH (08:48)
[2021-07-09 12:00] VITALS: BP 110/6
[2021-07-09] MEDS: ENOXAPARIN 40MG/0.4ML SYR SUBCUT SCH (14:30)
[2021-07-09 16:00] VITALS: BP 136/70
[2021-07-09 20:00] VITALS: BP_SYST 104; BP_SYST 143; BP_DIAS 52; BP_DIAS 66
[2021-07-09 21:53] LABS: BASOPHILS % 0.7 % (0.0-2.0); EOSINOPHILS % 0.9 % (0.0-5.0); HEMATOCRIT. 32.2 % (42.0-52.0); HEMOGLOBIN. 10.7 g/dL (14.0-18.0); LYMPHOCYTES % 11.9 % (20.0-50.0); MEAN CORPUSCULAR HEMOGLOBIN 28.9 pg (28.0-32.0); MEAN PLATELET VOLUME 7.1 fl (7.4-10.4); MONOCYTES % 9.6 % (2.0-8.0); NEUTROPHILS % 76.9 % (40.0-76.0); PLATELET 581 x1000/uL (130-400); RED BLOOD CELL COUNT 3.71 mill/uL (4.7-6.1); RED CELL DISTRIBUTION WIDTH 15.2 % (11.6-14.6)
[2021-07-09] MEDS: ATORVASTATIN CALCIUM 40MG TABLET PO SCH (21:54)
[2021-07-09 21:56] LABS: CHLORIDE 106 mEq/L (98-107)
[2021-07-10] VITALS: BP 135/51
[2021-07-10 04:00] VITALS: BP 135/86
[2021-07-10 08:00] VITALS: BP 132/68
[2021-07-10] MEDS: ASPIRIN 81MG TABLET PO SCH (08:51)
[2021-07-10] MEDS: ENOXAPARIN 40MG/0.4ML SYR SUBCUT SCH (13:16)
[2021-07-10 16:00] VITALS: BP 126/70
[2021-07-10 20:01] VITALS: BP 120/65
[2021-07-10] MEDS: ATORVASTATIN CALCIUM 40MG TABLET PO SCH (20:17)
[2021-07-11 00:05] VITALS: BP 115/52
[2021-07-11 04:00] VITALS: BP 122/62
[2021-07-11 08:00] VITALS: BP 108/57
[2021-07-11] MEDS: ASPIRIN 81MG TABLET PO SCH (08:41)
[2021-07-11 12:00] VITALS: BP 138/59
[2021-07-11] MEDS: ENOXAPARIN 40MG/0.4ML SYR SUBCUT SCH (13:28)
[2021-07-11 16:00] VITALS: BP 146/68
[2021-07-11] MEDS: METOPROLOL TARTRATE 50MG TABLET PO SCH ×2 (16:23→22:12)
[2021-07-11] MEDS: ACETAMINOPHEN 325MG TABLET PO PRN (17:21)
[2021-07-11 20:00] VITALS: BP 97/50
[2021-07-11] MEDS: ATORVASTATIN CALCIUM 40MG TABLET PO SCH (22:11)
[2021-07-11 23:15] LABS: BASOPHILS % 0.4 % (0.0-2.0); EOSINOPHILS % 0.8 % (0.0-5.0); HEMATOCRIT. 24.6 % (42.0-52.0); HEMOGLOBIN. 8.3 g/dL (14.0-18.0); LYMPHOCYTES % 10.1 % (20.0-50.0); MEAN CORPUSCULAR HEMOGLOBIN 29.5 pg (28.0-32.0); MEAN CORPUSCULAR VOLUME 87.4 fL (80.0-94.0); MEAN PLATELET VOLUME 6.9 fl (7.4-10.4); MONOCYTES % 9.8 % (2.0-8.0); NEUTROPHILS % 78.9 % (40.0-76.0); PLATELET 449 x1000/uL (130-400); RED BLOOD CELL COUNT 2.81 mill/uL (4.7-6.1); RED CELL DISTRIBUTION WIDTH 15.3 % (11.6-14.6)
[2021-07-11 23:29] LABS: CHLORIDE 108 mEq/L (98-107)
[2021-07-12] VITALS: BP 113/54
[2021-07-12 04:00] VITALS: BP 120/59
[2021-07-12 08:14] VITALS: BP 122/64
[2021-07-12] MEDS: METOPROLOL TARTRATE 50MG TABLET PO SCH ×2 (09:07→20:05)
[2021-07-12] MEDS: ASPIRIN 81MG TABLET PO SCH (09:07)
[2021-07-12 12:00] VITALS: BP 106/64
[2021-07-12] MEDS: ENOXAPARIN 40MG/0.4ML SYR SUBCUT SCH (15:39)
[2021-07-12 16:00] VITALS: BP 112/68
[2021-07-12 20:00] VITALS: BP 125/58
[2021-07-12] MEDS: ATORVASTATIN CALCIUM 40MG TABLET PO SCH (20:05)
[2021-07-12 20:25] LABS: BASOPHILS % 0.6 % (0.0-2.0); EOSINOPHILS % 3.2 % (0.0-5.0); HEMATOCRIT. 26.1 % (42.0-52.0); HEMOGLOBIN. 8.6 g/dL (14.0-18.0); LYMPHOCYTES % 14.3 % (20.0-50.0); MEAN CORPUSCULAR HEMOGLOBIN 28.6 pg (28.0-32.0); MEAN CORPUSCULAR VOLUME 86.8 fL (80.0-94.0); MEAN PLATELET VOLUME 7.5 fl (7.4-10.4); MONOCYTES % 10.1 % (2.0-8.0); NEUTROPHILS % 71.8 % (40.0-76.0); PLATELET 478 x1000/uL (130-400); RED CELL DISTRIBUTION WIDTH 15.3 % (11.6-14.6)
[2021-07-12 20:38] LABS: CHLORIDE 106 mEq/L (98-107)
[2021-07-13] VITALS: BP_SYST 100; BP_SYST 95; BP_DIAS 39; BP_DIAS 44
[2021-07-13 04:00] VITALS: BP 94/44
[2021-07-13 08:00] VITALS: BP 101/50
[2021-07-13] MEDS: ASPIRIN 81MG TABLET PO SCH (08:56)
[2021-07-13] MEDS: METOPROLOL TARTRATE 50MG TABLET PO SCH (08:56)
[2021-07-13 12:00] VITALS: BP 131/64
[2021-07-13] MEDS: ENOXAPARIN 40MG/0.4ML SYR SUBCUT SCH (14:00)
[2021-07-13 16:00] VITALS: BP 151/82
[2021-07-16] MEDS ORDERED: CEFU500T41 MT (19:54)
== END 2021-07-13 18:05 | disposition short-term general hospital (02) | DRG 871 ==
LOC: ER 13:45 → 7WST 18:08 → ENRESERV 06-19 07:40 → 5WST 07-13 00:12
PROVIDERS: ADMIT Internal Medicine; ATTEND Internal Medicine
DX: A41.9 Sepsis, unspecified organism (principal); U07.1 COVID-19; E43 Unspecified severe protein-calorie malnutrition; I10 Essential (primary) hypertension; R29.810 Facial weakness; D64.9 Anemia, unspecified; R26.2 Difficulty in walking, not elsewhere classified; Z68.26 Body mass index [BMI] 26.0-26.9, adult; Z68.21 Body mass index [BMI] 21.0-21.9, adult
CPT/HCPCS: 36415; 36600; 71045; 80048; 80053; 80305; 80320; 81003; 82375; 82805; 83605; 84145; 84443; 84484; 85025; 87426; 93005; 93306; 96365; 96368; 97116; 97162; 99285; J0696; J1650; J2543; J3370; J3490; J7060; U0003; U0005; G0480

== ENCOUNTER 2022-01-20 03:20 | Inpatient (IN) | payer MEDICARE, BC ==
[2022-01-20] VITALS (12 sets, daily range): BP systolic 85–113; BP diastolic 41–76
[~2022-01-20] VITALS: Ht 172.7 cm; Wt 54.5 kg
[2022-01-20] MEDS ORDERED: MORPHINE SULFATE 2 MG/ML CPJ (NOT FOR IM USE) IV ONE (04:00)
[2022-01-20] MEDS ORDERED: ONDANSETRON HCL 4MG/2ML INJ IV ONE (04:00)
[2022-01-20] MEDS ORDERED: SODIUM CHLORIDE 0.9% 1,000 ML IV ONE (04:45)
[2022-01-20] MEDS ORDERED: NOREPINEPHRINE 8MG/250ML PMX 250 ML IV SCH ×2 (08:15→08:27)
[2022-01-20] MEDS ORDERED: DEXT 5%/0.45% NACL 1000ML 1,000 ML IV ONE (08:15)
[2022-01-20] MEDS: MIDODRINE HCL 5MG TABLET PO SCH ×3 (09:32→22:54)
[2022-01-20] MEDS ORDERED: SODIUM CHLORIDE 0.9% 500 ML IV SCH (10:00)
[2022-01-20] MEDS: DEXT 5%/0.45% NACL 1000ML 1,000 ML IV SCH (15:41)
[2022-01-20] MEDS ORDERED: IPRATROPIUM/ALBUTEROL 0.5-3(2.5)MG/3ML NEB HHN PRN (16:30)
[2022-01-20 19:25] LABS: HEMATOCRIT. 38.5 % (42.0-52.0); HEMOGLOBIN. 12.3 g/dL (14.0-18.0); MEAN CORPUSCULAR HEMOGLOBIN 30.2 pg (28.0-32.0); MEAN CORPUSCULAR VOLUME 94.7 fL (80.0-94.0); MEAN PLATELET VOLUME 7.1 fl (7.4-10.4); PLATELET 343 x1000/uL (130-400); RED BLOOD CELL COUNT 4.06 mill/uL (4.7-6.1); RED CELL DISTRIBUTION WIDTH 18.7 % (11.6-14.6)
[2022-01-20] MEDS ORDERED: ENOXAPARIN 60MG/0.6ML SYR SUBCUT NR (22:00)
[2022-01-20] MEDS ORDERED: VANCOMYCIN 1.25GM PMX (XELLIA) 250 ML IV NR (22:30)
[2022-01-20 22:57] LABS: PLATELET ESTIMATE NORMAL
[2022-01-21] VITALS (12 sets, daily range): BP systolic 91–138; BP diastolic 51–96
[2022-01-21] MEDS: DEXT 5%/0.45% NACL 1000ML 1,000 ML IV SCH ×2 (03:24→08:40)
[2022-01-21] MEDS: MIDODRINE HCL 5MG TABLET PO SCH ×3 (05:58→21:48)
[2022-01-21 06:46] LABS: HEMATOCRIT. 35.4 % (42.0-52.0); HEMOGLOBIN. 11.4 g/dL (14.0-18.0); MEAN CORPUSCULAR HEMOGLOBIN 29.8 pg (28.0-32.0); MEAN CORPUSCULAR VOLUME 93.1 fL (80.0-94.0); MEAN PLATELET VOLUME 7.3 fl (7.4-10.4); PLATELET 350 x1000/uL (130-400); RED BLOOD CELL COUNT 3.81 mill/uL (4.7-6.1); RED CELL DISTRIBUTION WIDTH 18.6 % (11.6-14.6)
[2022-01-21 12:51] LABS: PLATELET ESTIMATE NORMAL
[2022-01-21] MEDS: DEXT 5%/0.9% NACL 1,000 ML IV SCH ×2 (15:27→21:49)
[2022-01-21] MEDS ORDERED: PIPERACILLIN/TAZOBACTAM 3.375 G in DEXTROSE 5% WATER 50 ML IV SCH (18:00)
[2022-01-21 20:06] LABS: CLARITY URINE TURBID (CLEAR); COLOR URINE YELLOW (YELLOW); KETONES URINE NEGATIVE (NEGATIVE); LEUKOCYTE ESTERASE URINE 3+ (NEGATIVE); NITRITE URINE NEGATIVE (NEGATIVE); OCCULT BLOOD URINE 2+ (NEGATIVE); PROTEIN URINE 3+ (NEGATIVE); SPECIFIC GRAVITY URINE 1.017 (1.005-1.030); UROBILINOGEN URINE 0.2 E.U./dL (0.2-1.0)
[2022-01-21] MEDS ORDERED: ENOXAPARIN 60MG/0.6ML SYR SUBCUT SCH (21:00)
[2022-01-22] VITALS: BP 109/56
[2022-01-22] MEDS ORDERED: DIAZEPAM 5 MG/ML 2ML CPJ IV NR (00:30)
[2022-01-22 00:32] VITALS: BP 40/19
== END 2022-01-22 02:30 | DRG 871 ==
LOC: ER 03:20 → EDBEDREQSVC 08:16 → ENRESERV 10:00 → 5EST 10:28
PROVIDERS: ADMIT Internal Medicine; ATTEND Internal Medicine
DX: A41.9 Sepsis, unspecified organism (principal); I46.9 Cardiac arrest, cause unspecified; J96.01 Acute respiratory failure with hypoxia; J69.0 Pneumonitis due to inhalation of food and vomit; N17.0 Acute kidney failure with tubular necrosis; I69.354 Hemiplegia and hemiparesis following cerebral infarction affecting left non-dominant side; E46 Unspecified protein-calorie malnutrition; E87.1 Hypo-osmolality and hyponatremia; I82.411 Acute embolism and thrombosis of right femoral vein; Z68.1 Body mass index [BMI] 19.9 or less, adult; I12.9 Hypertensive chronic kidney disease with stage 1 through stage 4 chronic kidney disease, or unspecified chronic kidney disease; D63.1 Anemia in chronic kidney disease; N18.9 Chronic kidney disease, unspecified; Z66 Do not resuscitate; F03.90 Unspecified dementia, unspecified severity, without behavioral disturbance, psychotic disturbance, mood disturbance, and anxiety; H40.9 Unspecified glaucoma; I95.9 Hypotension, unspecified; E83.51 Hypocalcemia; Z85.038 Personal history of other malignant neoplasm of large intestine; Z86.718 Personal history of other venous thrombosis and embolism; Z86.711 Personal history of pulmonary embolism; Z93.2 Ileostomy status; Z51.5 Encounter for palliative care
CPT/HCPCS: 36415; 71045; 76770; 80048; 81003; 84145; 85025; 93970; 99285; J1650; J2270; J2405; J2543; J3370; J3490; J7030; J7042; J7060; A4315